=== PATIENT | male | born 1970 | race Caucasian/White ===

== ENCOUNTER 2020-10-22 21:19 | Emergency (ER) | payer OTHER ==
[~2020-10-22] VITALS: Ht 172.7 cm; Wt 81.7 kg
--- NOTE | ~2020-10-22 | EMS ---
[address] [address] EMS Patient Care Report Name: TIKA ROBB Room #: REG FERNANDEZ Jacob#: [id number] Admission: 10/22/20 Attend Phys: Discharge: Date of : 68 Report #: [id number] THIS REPORT FOR: //name// Report Transmitted: 10/22/2020 21:08 EMS Care Summary [facility] Incident [id number] @ 10/22/2020 20:16 Incident Location [address] [place] [address] Patient TIKA ROBB Male, 50 Years 1970 Patient Address [address] [place] [address] Patient History Hypertension (HTN), Patient Allergies No known allergies, Patient Medications None Reported, Chief Complaint Severe anxiety Disposition Transported No Lights/[place] Dispatch Reason Chest Pain (Non-Traumatic) Transported To [facility] Narrative History- Pt is found laying prone on the bed of a hotel room. Pt is alert and oriented and states he is having a severe anxiety attack. Pt states that he has [address] [address] EMS Patient Care Report Name: TIKA ROBB Room #: REG FERNANDEZ Jacob#: [id number] Admission: 10/22/20 Attend Phys: Discharge: Date of : 68 Report #: [id number] waves anxiety that rosales over him and describes it as a heaviness in his chest and becomes short of breath. Pt says he is able to control it as long as he lays still and breathes through it. Pt denies any other complaints and states this started about two hours ago. Pt is able to move slowly to the cot and continue to keep his anxiety under control. During transport pt states that his anxiety is beginning to subside and he is now exhausted. Pt is transported to [employer] [facility] and is able to walk to the bed on his own. Report is given to the RN. Initial Vitals @20:55MI Suspected: false @20:55P: 88,R: 16,BP: 157/110,SpO2: 99, @21:11P: 93,R: 16,BP: 161/110,Pain: 0/10,GCS: 15,SpO2: 100,Revised Trauma: 12, @20:28P: 88,R: 16,BP: 164/106,Pain: 0/10,GCS: 15,Temp: 97.2F,SpO2: 100,Revised Trauma: 12, Assessments @21:10MENTAL:Person Oriented,Time Oriented,Place Oriented,Event Oriented,SKIN:HEENT:Head/Face: No Abnormalities,Eyes: No Abnormalities,Neck/Airway: No Abnormalities,LUNG SOUNDS:General: No Abnormalities,ABDOMEN:General: No Abnormalities,PELVIS//GI:No Abnormalities,EXTREMITIES:Left Arm: No Abnormalities,Right Arm: No Abnormalities,Left Leg: No Abnormalities,Right Leg: No Abnormalities,PULSE:Radial: 2+ Normal,NEURO:No Abnormalities, Impression Anxiety reaction/Emotional upset Procedures @20:5512-Lead ECGResponse: UnchangedSucceeded Timeline 20:15,Call Received 20:15,Psap Call 20:16,Dispatched 20:18,En Route 20:22,On Scene 20:26,At Patient 20:28,BP: 164/106 M,PULSE: 88,RR: 16 R,SPO2: 100 Ox,ETCO2: ,BG: ,PAIN: 0,GCS: 15, 20:55,12-Lead ECG,Response: UnchangedSucceeded, 20:55,BP: / M,PULSE: ,RR: R,SPO2: Ox,ETCO2: ,BG: ,PAIN: ,GCS: , 20:55,BP: 157/110 M,PULSE: 88,RR: 16 R,SPO2: 99 Ox,ETCO2: ,BG: ,PAIN: ,GCS: , 21:05,Depart Scene 21:11,BP: 161/110 M,PULSE: 93,RR: 16 R,SPO2: 100 Ox,ETCO2: ,BG: ,PAIN: 0,GCS: 15, [address] [address] EMS Patient Care Report Name: JIMMY ROBBIN Room #: REG FERNANDEZ Jacob#: [id number] Admission: 10/22/20 Attend Phys: Discharge: Date of : 68 Report #: [id number] 21:14,At Destination 21:32,Call Closed Disclaimer v1.1 Copyright 2020 [employer] This EMS Care Summary contains data elements from the applicable legal record (which may be displayed differently). It is designed to provide pertinent information for the following purposes: continuity of care, clinical quality, and state data reporting. The complete legal record is available to ED staff and administrators of the receiving hospital in [facility]'s Patient Tracker. All data is provided "as is."
[2020-10-22 23:20] VITALS: BP 142/91
--- NOTE | 2020-10-23 07:26 | EKG ---
[place] [address] [facility] [employer] [address] ELECTROCARDIOGRAM REPORT Name: TIKA ROBB Room #: DEP FERNANDEZ Jacob#: [id number] Admission: 10/22/20 Attend Phys: Discharge: 10/22/20 Date of : 68 Report #: [id number] [facility] ED Test Date: 2020-10-22 Test Time: 21:36:35 Pat Name: TIKA ROBB Department: Room: Gender: [employer]: AMAN : 1970 Requested By: Tam Boggs Order Number: [id number] MD: Darren Barth Measurements Intervals [place] Rate: 84 P: 34 WA: 151 QRS: 15 QRSD: 88 T: 40 QT: 413 QTc: 489 Interpretive Statements Sinus rhythm Probable anteroseptal infarct, old No previous ECG available for comparison Electronically Signed On 10-23-2020 7:26:06 CDT by Darren Barth [email or web address] <ELECTRONICALLY SIGNED> By: Darren Barth MD, [facility] 10/23/20 0726 [id number] Darren Barth MD, FACC /EPI
== END 2020-10-22 23:24 | disposition home or self-care (01) ==
LOC: ER 21:19
DX: F41.9 Anxiety disorder, unspecified (principal); I10 Essential (primary) hypertension; Z98.890 Other specified postprocedural states